=== PATIENT | male | born 1970 | race Caucasian/White ===

== ENCOUNTER 2020-07-09 15:08 | Emergency (ER) | payer OTHER ==
[2020-07-09 15:21] VITALS: BP 162/88; PULSE 99; TEMP 98.1; BMI 32.3
== END 2020-07-09 17:04 | disposition home or self-care (01) ==
LOC: JERFT 15:08
DX: M79.604 Pain in right leg (principal)
CPT/HCPCS: 93971-TC; 99284-25

== ENCOUNTER 2021-03-08 12:28 | Emergency (ER) | payer OTHER ==
[2021-03-08 13:10] VITALS: BP 117/72; PULSE 80; TEMP 97.9; BMI 32.5
[2021-03-08] MEDS ORDERED: LIDOCAINE 5% TOPICAL PATCH TP ONE (14:28)
[2021-03-08] MEDS ORDERED: KETOROLAC TROMETHAMINE 30 MG/1 ML VIAL IM ONE (14:28)
[2021-03-08] MEDS ORDERED: LIDOCAINE 5% TOPICAL PATCH ONE (14:29)
[2021-03-08] MEDS ORDERED: KETOROLAC TROMETHAMINE 30 MG/1 ML VIAL ONE (14:29)
[2021-03-08] MEDS ORDERED: LIDOCAINE PATCH REMOVAL MC ONE (22:00)
== END 2021-03-08 14:38 | disposition home or self-care (01) ==
LOC: JERFT 12:28
PROC: 3E0233Z Introduction of Anti-inflammatory into Muscle, Percutaneous Approach (ICD-10-PCS; principal; 2021-03-08)
DX: M54.5 Low back pain (principal); V49.40XA Driver injured in collision with unspecified motor vehicles in traffic accident, initial encounter
CPT/HCPCS: 99284-25